=== PATIENT | male | born 1995 | race Caucasian/White ===

== ENCOUNTER 2023-12-27 20:00 | Emergency (ER) | payer OTHER ==
[~2023-12-27] VITALS: Ht 182.9 cm; Wt 136.1 kg
[2023-12-27 20:30] VITALS: BP 132/95; PULSE 109; RESP 16; TEMP 95.7; O2SAT 99
[2023-12-27 21:26] LABS: APPEARANCE,URINE SL CLOUDY (CLEAR); BILIRUBIN,URINE NEGATIVE (NEGATIVE); BLOOD, URINE 2+ (NEGATIVE); COLOR,URINE YELLOW (YELLOW); LEUKOCYTE ESTERASE ,URINE 3+ (NEGATIVE); NITRITE, URINE NEGATIVE (NEGATIVE); PROTEIN,URINE NEGATIVE (NEGATIVE); UGLUCOSE NEGATIVE (NEGATIVE); UROBILINOGEN,URINE 0.2 EU/dL (0.2 - 1)
[2023-12-27 21:40] LABS: RBC,URINE 11-20 (MOD) /HPF (0-5); WBC,URINE 60-80 /HPF (0-5)
[2023-12-27 21:41] LABS: BACTERIA,URINE 1+ /HPF (None Seen); MUCUS,URINE 1+ /LPF (None Seen); TRICHOMONAS,URINE Moderate /HPF (None Seen); YEAST,URINE None Seen /HPF (None Seen)
[2023-12-27] MEDS ORDERED: NITR100C7 PO (22:32)
[2023-12-27] MEDS ORDERED: METR-435 PO (22:42)
== END 2023-12-27 22:43 | disposition home or self-care (01) ==
LOC: MED 20:00
DX: N39.0 Urinary tract infection, site not specified (principal); Z79.899 Other long term (current) drug therapy
CPT/HCPCS: 81001; 87086; 87491; 99283